=== PATIENT | male | born 1965 ===

== ENCOUNTER 2019-02-16 15:03 | Inpatient (IN) ==
[2019-02-16] MEDS ORDERED: SODIUM CHLORIDE 0.9% 1,000 ML IV STA (15:46)
[2019-02-16] MEDS ORDERED: PIPERACILLIN/TAZOBACTAM 3,375 MG in SODIUM CHLORIDE 0.9% 100 ML IV STA (15:47)
[2019-02-16] MEDS ORDERED: PROMETHAZINE 25 MG/1 ML VIAL IM PRN (18:01)
[2019-02-16] MEDS ORDERED: HYDROmorphone 2 MG/1 ML VIAL IV PRN (18:01)
[2019-02-16] MEDS ORDERED: DEXTROSE 10% 250 ML BAG IV PRN (18:01)
[2019-02-16] MEDS ORDERED: ONDANSETRON 4 MG/2 ML VIAL IV PRN (18:01)
[2019-02-16] MEDS ORDERED: GLUCAGON 1 MG VIAL IM PRN (18:01)
[2019-02-16] MEDS: INSULIN REGULAR 100 UNIT/ML SUBCUT SCH (19:11)
[2019-02-16] MEDS: ACETAMINOPHEN 325 MG TABLET PO PRN (23:06)
[2019-02-17] MEDS: PIPERACILLIN/TAZOBACTAM 3,375 MG in SODIUM CHLORIDE 0.9% 100 ML IV SCH ×4 (01:16→16:32)
[2019-02-17] MEDS: INSULIN REGULAR 100 UNIT/ML SUBCUT SCH ×4 (01:17→17:30)
[2019-02-17] MEDS: PANTOPRAZOLE 40 MG TABLET PO SCH (09:38)
[2019-02-17] MEDS ORDERED: BUPIVACAINE MPF 0.25% 30 ML VIAL ONE (13:09)
[2019-02-17] MEDS ORDERED: LIDOCAINE 1% 20 ML VIAL ONE (13:09)
[2019-02-17] MEDS ORDERED: fentaNYL 100 MCG/2 ML VIAL ONE (14:17)
[2019-02-17] MEDS ORDERED: propofoL 200 MG/20 ML VIAL IV ONE (14:17)
[2019-02-17] MEDS ORDERED: ONDANSETRON 4 MG/2 ML VIAL ONE (14:17)
[2019-02-17] MEDS ORDERED: LIDOCAINE 2% 5 ML VIAL ONE (14:17)
[2019-02-17] MEDS ORDERED: MIDAZOLAM 2 MG/2 ML VIAL ONE (14:17)
[2019-02-17] MEDS ORDERED: LACTATED RINGERS 1,000 ML IV ONE (14:17)
[2019-02-17] MEDS ORDERED: SEVOFLURANE 1 UNIT/15 MINUTE INH ONE (14:17)
[2019-02-17] MEDS: ACETAMINOPHEN 325 MG TABLET PO PRN (19:55)
[2019-02-18] MEDS: PIPERACILLIN/TAZOBACTAM 3,375 MG in SODIUM CHLORIDE 0.9% 100 ML IV SCH ×3 (00:12→16:54)
[2019-02-18] MEDS: INSULIN REGULAR 100 UNIT/ML SUBCUT SCH ×4 (00:23→18:18)
[2019-02-18 06:58] LABS: Basophils % 0.3 % (0.0-0.8); Eosinophils # 0.1 10*3/uL (0.0-0.87); Eosinophils % 1.9 % (0.00-10.9); Hematocrit 28.8 VOL% (42.0-52.0); Hemoglobin 9.6 GM/DL (14.0-18.0); Immature Granulocytes % 0.4 %; Immature Granulocytes Absolute 0.03 #; Lymphocytes # 0.8 10*3/uL (1.4-4.0); Mean Corpuscular HGB Conc 33.3 GM/DL (32-36); Mean Corpuscular Volume 98.6 FL (87-102); Neutrophils % 74.4 % (38.7-73.9); Red Blood Count 2.92 MC/CUMM (3.8-5.5); Red Cell Distribution Width 13.4 % (9.3-17.3); White Blood Count 7.5 T/CUMM (4-12)
[2019-02-18 07:01] LABS: Platelet Count 84 T/CUMM (130-400)
[2019-02-18 07:11] LABS: Calcium 7.4 MG/DL (8.5-10.1); Osmolality,Calculated 275.8 MOS/KG (273-304)
[2019-02-18] MEDS: PANTOPRAZOLE 40 MG TABLET PO SCH (08:38)
[2019-02-18] MEDS: ACETAMINOPHEN 325 MG TABLET PO PRN (12:27)
[2019-02-19] MEDS: INSULIN REGULAR 100 UNIT/ML SUBCUT SCH ×4 (00:57→18:57)
[2019-02-19] MEDS: PIPERACILLIN/TAZOBACTAM 3,375 MG in SODIUM CHLORIDE 0.9% 100 ML IV SCH ×3 (00:57→18:10)
[2019-02-19 05:01] LABS: Basophils % 0.5 % (0.0-0.8); Eosinophils # 0.2 10*3/uL (0.0-0.87); Eosinophils % 4.2 % (0.00-10.9); Hematocrit 28.3 VOL% (42.0-52.0); Hemoglobin 9.6 GM/DL (14.0-18.0); Immature Granulocytes % 0.5 %; Immature Granulocytes Absolute 0.03 #; Lymphocytes % 18.6 % (21.2-54.2); Mean Corpuscular HGB Conc 33.9 GM/DL (32-36); Mean Corpuscular Volume 97.6 FL (87-102); Mean Platelet Volume 11.1 FL (9.6-12.0); Monocytes % 11.9 % (1.7-12.7); Neutrophils % 64.3 % (38.7-73.9); White Blood Count 5.5 T/CUMM (4-12)
[2019-02-19 05:26] LABS: Calcium 7.6 MG/DL (8.5-10.1)
[2019-02-19 05:30] LABS: Platelet Count 71 T/CUMM (130-400)
[2019-02-19 05:32] LABS: Hypochromasia 1+
[2019-02-19] MEDS: PANTOPRAZOLE 40 MG TABLET PO SCH (09:04)
[2019-02-19] MEDS: SODIUM HYPOCHLORITE 0.25% IRRIG 473 ML BOTTLE TOP SCH (10:45)
[2019-02-20] MEDS: INSULIN REGULAR 100 UNIT/ML SUBCUT SCH ×3 (00:38→12:25)
[2019-02-20] MEDS: PIPERACILLIN/TAZOBACTAM 3,375 MG in SODIUM CHLORIDE 0.9% 100 ML IV SCH ×2 (00:41→09:40)
[2019-02-20 07:32] VITALS: BP 136/77
[2019-02-20] MEDS: PANTOPRAZOLE 40 MG TABLET PO SCH (09:40)
[2019-02-20] MEDS: SODIUM HYPOCHLORITE 0.25% IRRIG 473 ML BOTTLE TOP SCH (10:45)
[2019-02-20] MEDS ORDERED: INFLUENZA VIRUS VACCINE 0.5 ML SYRINGE IM ONE (10:48)
== END 2019-02-20 12:00 | disposition home or self-care (01) | DRG 240 ==
LOC: N.ED 15:03 → N.EDINP 16:32 → N.3E 18:11
PROVIDERS: ADMIT Surgery; ATTEND Surgery

== ENCOUNTER 2019-05-30 16:32 | Inpatient (IN) ==
[2019-05-30] MEDS ORDERED: DEXTROSE 50% 25 GM/50 ML SYRINGE IV PRN (20:52)
[2019-05-30] MEDS ORDERED: ONDANSETRON 4 MG/2 ML VIAL IV PRN (20:52)
[2019-05-30] MEDS ORDERED: GLUCAGON 1 MG VIAL IM PRN (20:52)
[2019-05-30] MEDS ORDERED: INSULIN REGULAR 100 UNIT/ML SUBCUT SCH (21:00)
[2019-05-30] MEDS ORDERED: DEXTROSE 5% NACL 0.45% 1,000 ML IV SCH (21:00)
[2019-05-30] MEDS ORDERED: FUROSEMIDE 20 MG/2 ML VIAL IV SCH (21:10)
[2019-05-30 21:34] LABS: Basophils # 0.1 10*3/uL (0.0-0.2); Basophils % 0.3 % (0.0-0.8); Eosinophils # 0.1 10*3/uL (0.0-0.87); Eosinophils % 0.3 % (0.00-10.9); Hematocrit 23.6 VOL% (42.0-52.0); Hemoglobin 7.7 GM/DL (14.0-18.0); Immature Granulocytes Absolute 0.71 #; Lymphocytes # 0.9 10*3/uL (1.4-4.0); Lymphocytes % 5.1 % (21.2-54.2); Mean Corpuscular HGB Conc 32.6 GM/DL (32-36); Mean Corpuscular Volume 103.5 FL (87-102); Mean Platelet Volume 9.6 FL (9.6-12.0); Monocytes % 6.1 % (1.7-12.7); NRBC # 0.02 10*3/uL; Neutrophils % 84.2 % (38.7-73.9); Platelet Count 216 T/CUMM (130-400); Red Blood Count 2.28 MC/CUMM (3.8-5.5); Red Cell Distribution Width 18.6 % (9.3-17.3); White Blood Count 17.5 T/CUMM (4-12)
[2019-05-30 21:51] LABS: Albumin 1.2 G/DL (3.4-5.0); Calcium 7.3 MG/DL (8.5-10.1); Osmolality,Calculated 292.7 MOS/KG (273-304); Total Protein 5.6 G/DL (6.4-8.3)
[2019-05-30 21:58] LABS: Bilirubin,Total 14.7 MG/DL (0.2-1.0)
[2019-05-30] MEDS ORDERED: cefTRIAXone 2,000 MG in SYRINGE 1 EACH IV SCH (22:00)
[2019-05-30 22:12] LABS: INR 1.4; PT Patient Result 15.4 SECS (9.6-12.2)
[2019-05-30 22:22] LABS: Anisocytosis 1+; Band Neutrophils 3 % (0-10); Hypochromasia 1+; Lymphocytes 6 % (20-55); Segmented Neutrophils 90 % (50-85); Total Cells Counted 100
[2019-05-30 22:23] LABS: Microcytosis 1+; Platelet Estimate Adequate; Polychromasia 1+
[2019-05-30] MEDS ORDERED: LORazepam 2 MG/1 ML VIAL IV PRN (22:47)
[2019-05-30] MEDS: LACTULOSE 20 GM/30 ML UDCUP RECTAL SCH (23:03)
[2019-05-30] MEDS: RIFAXIMIN 550 MG TABLET PO SCH (23:05)
[2019-05-30] MEDS: SPIRONOLACTONE 50 MG TABLET PO SCH (23:05)
[2019-05-30] MEDS: ALBUMIN 25% 25 GM in PREMIX 1 EACH IV SCH (23:13)
[2019-05-31] MEDS ORDERED: SODIUM BICARBONATE 50 MEQ/50 ML VIAL IV ONE ×2 (00:51→00:58)
[2019-05-31] MEDS ORDERED: SODIUM CHLORIDE 0.9% 1,000 ML IV ONE (01:00)
[2019-05-31] MEDS ORDERED: NOREPINEPHRINE 4 MG/4 ML VIAL IV ONE (01:13)
[2019-05-31] MEDS ORDERED: DEXTROSE 10% 250 ML IV PRN (01:30)
[2019-05-31 01:34] LABS: ABG Base Excess -18.7 MMOL/L (-2.5-2.5); ABG HCO3 10.7 MMOL/L (20-26); ABG PCO2 43.1 MM HG (35-48); ABG PO2 372.4 MM HG (80-95); ABG TCO2 12.1 MMOL/L (23-27); Allen Test Positive; Pt O2 Delivery Device Ventilator
[2019-05-31 01:37] LABS: ABG PH 7.014 (7.35-7.45)
[2019-05-31] MEDS: NOREPINEPHRINE 8 MG in SODIUM CHLORIDE 0.9% 242 ML IV PRN ×4 (01:40→12:47)
[2019-05-31] MEDS ORDERED: ETOMIDATE 20 MG/10 ML VIAL IV ONE (01:40)
[2019-05-31] MEDS: SODIUM BICARB INJ 100 MEQ in DEXTROSE 5% NACL 0.45% 900 ML IV SCH ×2 (01:56→09:59)
[2019-05-31] MEDS: OCTREOTIDE 500 MCG in SODIUM CHLORIDE 0.9% 100 ML IV SCH ×2 (02:34→12:05)
[2019-05-31 03:28] VITALS: BP 100/43
[2019-05-31] MEDS: LACTULOSE 20 GM/30 ML UDCUP RECTAL SCH ×3 (03:46→11:06)
[2019-05-31 05:24] LABS: Basophils # 0.1 10*3/uL (0.0-0.2); Basophils % 0.4 % (0.0-0.8); Eosinophils # 0.1 10*3/uL (0.0-0.87); Eosinophils % 0.5 % (0.00-10.9); Hematocrit 23.8 VOL% (42.0-52.0); Hemoglobin 6.8 GM/DL (14.0-18.0); Immature Granulocytes Absolute 3.21 #; Lymphocytes # 1.6 10*3/uL (1.4-4.0); Mean Corpuscular HGB Conc 28.6 GM/DL (32-36); Mean Corpuscular Volume 117.8 FL (87-102); Mean Platelet Volume 9.6 FL (9.6-12.0); Neutrophils % 75.1 % (38.7-73.9); Platelet Count 261 T/CUMM (130-400); Red Blood Count 2.02 MC/CUMM (3.8-5.5); Red Cell Distribution Width 18.9 % (9.3-17.3); White Blood Count 26.8 T/CUMM (4-12)
[2019-05-31 05:49] LABS: Albumin 1.4 G/DL (3.4-5.0); Osmolality,Calculated 293.4 MOS/KG (273-304); Total Protein 5.4 G/DL (6.4-8.3)
[2019-05-31 05:51] LABS: Bilirubin,Total 14.8 MG/DL (0.2-1.0)
[2019-05-31 06:30] LABS: Band Neutrophils 3 % (0-10); Lymphocytes 11 % (20-55); Myelocytes 1 %; Nucleated Red Blood Cells 1 (0-5); Segmented Neutrophils 78 % (50-85); Total Cells Counted 100
[2019-05-31 06:31] LABS: Anisocytosis 1+; Hypochromasia 1+; Platelet Estimate Normal; Target Cells Few
[2019-05-31] MEDS: INSULIN REGULAR 100 UNIT/ML SUBCUT SCH ×2 (06:39→12:05)
[2019-05-31] MEDS: ALBUMIN 25% 25 GM in PREMIX 1 EACH IV SCH (06:39)
[2019-05-31] MEDS: PHENYLEPHRINE DRIP 40 MG/250 ML PREMIX IV PRN ×2 (07:45→13:24)
[2019-05-31] MEDS ORDERED: FUROSEMIDE 20 MG/2 ML VIAL IV SCH (08:00)
[2019-05-31 09:04] LABS: ABG Base Excess -21.2 MMOL/L (-2.5-2.5); ABG HCO3 8.9 MMOL/L (20-26); ABG Oxygen Saturation 97.1 % (95-100); ABG PCO2 40.5 MM HG (35-48); ABG TCO2 10.1 MMOL/L (23-27); Allen Test Positive; Pt O2 Delivery Device Ventilator
[2019-05-31] MEDS ORDERED: MIDAZOLAM 2 MG/2 ML VIAL IV ONE (09:05)
[2019-05-31] MEDS ORDERED: MIDAZOLAM 100 MG in SODIUM CHLORIDE 0.9% 80 ML IV PRN (09:06)
[2019-05-31] MEDS ORDERED: SODIUM BICARB INJ 150 MEQ in DEXTROSE 5% 1,000 ML IV SCH (10:15)
[2019-05-31] MEDS: SPIRONOLACTONE 50 MG TABLET PO SCH ×2 (10:53→11:06)
[2019-05-31] MEDS: MIDODRINE 5 MG TABLET PO SCH ×2 (10:53→11:06)
[2019-05-31] MEDS: RIFAXIMIN 550 MG TABLET PO SCH ×2 (10:53→11:06)
[2019-05-31] MEDS ORDERED: MORPHINE 4 MG/1 ML VIAL IV PRN (14:15)
[2019-05-31] MEDS ORDERED: ALBUMIN 25% 25 GM in PREMIX 1 EACH IV ONE (14:39)
[2019-05-31] MEDS ORDERED: GENTAMICIN INJ 80 MG in PREMIX 1 EACH IV ONE (15:00)
[2019-05-31] MEDS ORDERED: PANTOPRAZOLE 40 MG VIAL IV SCH (15:00)
[2019-05-31] MEDS ORDERED: cefTRIAXone 1,000 MG in SYRINGE 1 EACH IV SCH (21:00)
== END 2019-05-31 17:04 | disposition expired | DRG 441 ==
LOC: N.5E 18:21 → SUATTDRO 18:21 → N.CC 05-31 01:12
PROVIDERS: ADMIT Internal Medicine; ATTEND Internal Medicine